=== PATIENT | male | born 1940 ===

== ENCOUNTER → 2024-11-06 14:46 | Outpatient (REF) | payer MEDICARE, SELFPAY ==
--- NOTE | 2024-11-06 14:46 | S_PTH ---
PATIENT: Aaron Roberto LOC: [facility] U#:[id number] AGE/SX: 85/M ROOM: RE11/06/[address]: Rylie Bar PA-C : 1940 BED: DIS: SPEC #: [id number] RECD: 11/07/24 06:42 STATUS: SADE REFermin #: [id number] RACHEL: 11/06/24 14:[address]: Rylie Bar DEPT: [facility] Surgical RECD BY: Kalpana Gordon ENTERED: 11/07/24 06:42 SP TYPE: Surgical OTHR DR: Flavio Armando, Tissues: A - Skin Bx Procedures: Hematoxylin and Eosin Stain Gross and Microscopic Level 4
== END ==
LOC: ANHLAB 14:46
PROVIDERS: PCP Pediatrics; Visit Provider Physician Assistant Surgical
DX: C44.41 Basal cell carcinoma of skin of scalp and neck (principal)
CPT/HCPCS: 88305

== ENCOUNTER → 2024-11-27 11:31 | Outpatient (REF) | payer MEDICARE, SELFPAY ==
--- NOTE | 2024-11-27 11:31 | S_PTH ---
PATIENT: Aaron Roberto LOC: [facility] #:[id number] AGE/SX: 85/M ROOM: RE11/27/[address]: Bradford Broussard MD : 1940 BED: DIS: SPEC #: [id number] RECD: 11/27/24 13:38 STATUS: SADE BENJAMIN #: [id number] RACHEL: 11/27/24 11:[address]: Bradford Broussard DEPT: [facility] Surgical RECD BY: Padmini Valente MLT, ([facility]) ENTERED: 11/27/24 13:40 SP TYPE: Surgical OTHR DR: Flavio ArmandoMD Tissues: A - Skin Procedures: Hematoxylin and Eosin Stain Gross and Microscopic Level 4
--- OUTSIDE RECORDS SUMMARY | 2024-11-27 13:33 | XMS_ITS | Encounter Summary ---
Author Organization [facility] Address [address] [place] [address] Care Team Providers Care Mailing Machine Helper Name Role Phone Jeet Woody MD Primary Care Provider [phone] Jermain Mendes MD Unavailable Jeet Woody MD Unavailable [phone] Jeet Woody MD Unavailable [phone] Flavio Armando MD Primary Care Provide r Encounter Details Date Type Department Care Team (Late st Contact Info) Description 01/18/2002 Abstract [facility] Conversion , Regis Johnson MD Social History Tobacco Use Types Packs/Day Years Used Date Smoking Tobacco: Never Assessed Sex and Gender Information Value Date Recorded Sex Assigned at Male 04/06/2022 9:41 AM WHEELCHAIR VAN OPERATOR FIRST RESPONDER Legal Sex Male 7:10 PM CDT Gender Identity Male 04/06/2022 9:41 AM WHEELCHAIR VAN OPERATOR FIRST RESPONDER Sexual Orientation Straight 04/06/2022 9: 41 AM WHEELCHAIR VAN OPERATOR FIRST RESPONDER documented as of this encounter Plan of Treatment Upcoming Encounters Date Type Department Care Team (Late st Contact Info) Description 12/06/2024 10:30 AM CDT Office Visit [facility] [address] [place] [address] Jermain Mendes MD [facility]. [facility] [address] [place] [address] 04/25/2025 10:40 AM WHEELCHAIR VAN OPERATOR FIRST RESPONDER Office [facility] [address] [place] [address] [place] [address] [place] [address] documented as of this encounter Visit Diagnoses Not on filedocumented in this encounter Care Teams Mailing Machine Helper Relationship Specialty Start Date End Date Jeet Woody MD PCP - General INTERNAL MEDICINE 06/18/18 10/03/19 Jeet Woody MD [address] [place] [address] PCP - Med [facility] - [facility] Attributed Provider 05/14/19 06/13/19 Jeet Woody MD PCP - [facility] - [facility] Attributed Provider 07/13/19 03/14/20 [place] [address] [place] [address] PCP - General INTERNAL MEDICINE 10/04/19 Jermain Mendes MD Three [facility]. [facility] [address] [place] [address] [employer] INTERVENTIONAL CARDIOLOGY 08/21/18 10/03/19 documented as of this encounter
--- OUTSIDE RECORDS SUMMARY | 2024-11-27 13:33 | XMS_ITS | Clinical Summary ---
Author Organization [facility] Address [address] [place] [address] Care Team Providers Care In Store Marketing Representative Name Role Phone Flavio Armando MD Primary Care Provide r Allergies No known active allergies Medications docusate sodium 100 MG capsule Take 2 capsules (200 mg total) by mouth daily. Active multi vitamin/minerals tablet Take 1 tablet by mouth daily. 30 tablet 2 Active thiamine 100 MG TabIndications:Fo lic acid deficiency Take 1 tablet (100 mg total) by mouth daily. 90 tablet 3 2 Active nitroglycerin (NITROSTAT) 0.[address] 1 tablet (0.4 mg total) under the tongue every 5 (five) minutes as needed for Chest Pain. 25 tablet 1 3 Active dutasteride (AVODART) 0.5 MG capsuleIndication s:Essential hypertension Take 1 capsule by mouth once daily 90 capsule 3 5 Active folic acid (FOLVITE) 1 MG tabletIndications :Folic acid deficiency Take 1 tablet by mouth once daily 90 tablet 3 5 Active apixaban (ELIQUIS) 5 MG tabletIndications :Atrial fibrillation, unspecified type (CMS/HCC HHS/HCC) Take 1 tablet by mouth twice daily 60 tablet 11 5 Active atorvastatin (LIPITOR) 10 MG tablet Take 1 tablet (10 mg total) by mouth every other day. at bedtime 50 tablet 1 5 Active tamsulosin (FLOMAX) 0.4 MG CapIndications:Be nign prostatic hyperplasia with nocturia TAKE 1 CAPSULE BY MOUTH NIGHTLY 90 capsule 3 5 Active metoprolol tartrate (LOPRESSOR) 25 MG tabletIndications :Essential hypertension Take 2 tablets by mouth twice daily 120 tablet 3 5 Active amoxicillin-clavu lanate (AUGMENTIN) 875-125 MG tabletIndications :Open neck wound, initial encounter Take 1 tablet (875 mg total) by mouth 2 (two) times daily for 10 days. 20 tablet 5 11/03/19 25 Active Problems Problem Noted Date Diagnosed Date Alcohol use disorder in remission 10/13/2022 Prediabetes 10/13/2022 Atrial fibrillation with RVR (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) 05/23/2022 10/13/2022 Alcohol use 07/16/2021 12/14/2021 NSTEMI (non-ST elevated myoc ardial infarction) ([facility]) 06/17/2018 04/23/2020 Encounters Date Type Department Care Team Description 10/23/2024 10:00 AM CDT Office Visit [facility] [address] [place] [address] Flavio Armando MD Follow Up (6 month. Chronic disease management. ); Wound (Right side of neck x 6 months.) 10/23/2024 Travel 10/15/2024 1:30 PM CDT - 10/15/2024 11:59 PM CDT Hospital Encounter [facility] [address] [place] [address] Flavio Armando MD Discharge Disposition: Home or Self Care (Routine Discharge) 10/15/2024 Travel from Last 3 Months Immunizations Immunization Administration Dates Next Due Influenza Adult (Generic) 04/16/2021(Deferred: P atient Refused) MODERNA COVID-19 (12+) MRNA, LNP-S, PF, 100 MCG/ 0.5 ML DOSE 01/26/2021,06/27/2020,05/30/2020 Family History Medical History Relation Comments Cancer Brother No Known Problems Father No Known Problems Mother Relation Status Comments Brother Father Mother Social History Tobacco Use Types Packs/Day Years Used Date Smoking Tobacco: Former Cigarettes 0 0 06/18/1979 - 06/18/1979 Passive Smoke Exposure: Past Smokeless Tobacco: Never Tobacco Cessation:Counseling Given: Not Answered Alcohol Use Standard Drinks/Week Comments Yes 0 (1 standard drink = 0.6 oz pur e alcohol) Social Humiliation, Afraid, Rape, and Kick questionnair e Answer Date Recorded Within the last year, have y ou been afraid of your partner or ex-partner? No 05/23/2022 Within the last year, have y ou been humiliated or emotionally abused in other ways by your partner or ex-partner? No Within the last year, have y ou been kicked, hit, slapped, or otherwise physically hurt by your partner or ex-partner? No 05/23/2022 Within the last year, have y ou been raped or forced to have any kind of sexual activity by your partner or ex-partner? No 05/23/2022 Overall Financial Resource Strain (CARDIA) Answe r Date Recorded How hard is it for you to pa y for the very basics like food, housing, medical care, and heating? Not hard at all 05/23/2022 PHQ-2 Answer Date Recorded Patient Health Questionnaire-2 Score 0 10/23/2024 Hunger Vital Sign Answer Date Recorded Within the past 12 months, y ou worried that your food would run out before you got the money to buy more. Never true 05/24/19 23 Within the past 12 months, t he food you bought just didn't last and you didn't have money to get more. Never true 05/23/2022 PRAPARE - Transportation Answer Date Re corded In the past 12 months, has l ack of transportation kept you from medical appointments or from getting medications? No 05/12 In the past 12 months, has l ack of transportation kept you from meetings, work, or from getting things needed for daily living? No 05/23/2022 Housing Stability Vital Sign Answer Hugo e Recorded In the last 12 months, was t here a time when you were not able to pay the mortgage or rent on time? No 05/23/2022 In the last 12 months, how many places have you lived? 1 05/23/2022 In the last 12 months, was t here a time when you did not have a steady place to sleep or slept in a retirement (including now)? No 05/23/2022 Sex and Gender Information Value Date Recorded Sex Assigned at Male 04/06/2022 9:41 AM FIRST AID INSTRUCTOR Legal Sex Male 7:10 PM CDT Gender Identity Male 04/06/2022 9:41 AM FIRST AID INSTRUCTOR Sexual Orientation Straight 04/06/2022 9: 41 AM FIRST AID INSTRUCTOR Last Filed Vital Signs Vital Sign Reading Time Taken Comments Blood Pressure 128/70 10/23/2024 1:30 PM CDT Pulse 90 10/23/2024 1:30 PM CDT Temperature 36.9 C (98.4 F) 10/23/2024 1:30 PM CDT Respiratory Rate 20 10/23/2024 1:30 PM CDT Oxygen Saturation 95% 10/23/2024 1:30 PM CDT Inhaled Oxygen Concentration - - Weight 88.5 kg (195 lb) 10/23/2024 1:30 PM CDT Height 175.3 cm (5' 9) 10/23/2024 1:30 PM CDT Body Mass Index 28.8 10/23/2024 1:30 PM CDT Plan of Treatment Upcoming Encounters Date Type Department Care Team (Late st Contact Info) Description 12/06/2024 10:30 AM CDT Office Visit [facility] [address] [place] [address] Jermain Mendes MD Three [facility]. [facility] [address] [place] [address] 04/25/2025 10:40 AM FIRST AID INSTRUCTOR Office Visit [facility] [address] [place] [address] [place] [address] [place] [address] Health Maintenance Due Date Last Done Comments DTaP, Tdap and Td Vaccines (1 - Tdap) 02/21/1959 Pneumococcal Vaccine: 50+ Years (1 of 2 - PCV) 02/21/1959 Zoster Vaccines (1 of 2) 02/21/1990 Annual Medicare Wellness Visit 02/21/2005 RSV Immunization or 60+ Years (1 - 1-dose 75+ series) 02/21/2015 COVID-19 Vaccine ( season) 2024 01/07/2022, 01/26/2021, 06/27/2020, Additional history exists PHQ-2 (Physician Phelps) Completed 10/23/2024 Meningococcal B Vaccine Aged Out No l onger eligible based on patient's age to complete this topic Meningococcal Vaccine Aged Out No jeffery tiago eligible based on patient's age to complete this topic RSV Immunizations Under 20 Months Aged Out No longer eligible based on patient's age to complete this topic Procedures Procedure Name Priority Date/Time Associated Diagnosis Comments PROSTATE SPECIFIC ANTIGEN,SCREENING Routine 10/15/2024 1:40 PM CDT Prostate cancer screening COMPREHENSIVE METABOLIC PANEL Routine 10/15/2024 1:40 PM CDT Prediabetes HEMOGLOBIN, GLYCOSYLATED Routine 10/15/2024 1:40 PM CDT Prediabetes from Last 3 Months Results * (ABNORMAL) HEMOGLOBIN, GLYCOSYLATED (10/15/2024 1:40 PM CDT) HGB A1C 5.8(H) <5.7 % 10/16/2024 2:53 AM CDT [facility] Comment: ADA GUIDELINES 2010 5.7 TO 6.4% INCREASED RISK OF DIABETES > OR = 6.5% CONSISTENT WITH DIABETES ESTIMATED AVG GLUCOSE 120 mg/dL 10/16/2024 2:53 AM CDT [facility] 10/15/2024 1:40 PM CDT Flavio Armando MD LABORATORY Final Result Performing Organization Address City/[facility] Co de Phone Number [facility] [address] [place] [address], [place] [phone] * PROSTATE SPECIFIC ANTIGEN,SCREENING (10/15/2024 1:40 PM CDT) PSA 0.40 <4.0 NG/ML 10/15/2024 2:46 PM CDT [facility] Comment: Test was performed using the Siemens method. Results obtained with other assay methods or kits cannot be used interchangeably with results obtained by the Siemens method. 10/15/2024 1:40 PM CDT Flavio Armando MD LABORATORY Final Result Performing Organization Address [facility]/[place] [employer] de Phone Number [facility] [address] [place] [address], [place] [phone] * (ABNORMAL) COMPREHENSIVE METABOLIC PANEL (10/15/2024 1:40 PM CDT) GLUCOSE 109(H) 70 - 99 MG/DL 10/15/2024 2:46 PM CDT [facility] BUN 9 7 - 18 MG/DL 10/15/2024 2:46 PM CDT [facility] CREATININE S/P/B 1.00 0.7 - 1.3 MG/DL 10/15/2024 2:46 PM CDT [facility] SODIUM S/P/B 137 136 - 145 MMOL/L 10/15/2024 2:46 PM CDT [facility] POTASSIUM S/P/B 4.3 3.5 - 5.1 MMOL/L 10/15/2024 2:46 PM T [facility] CHLORIDE S/P/B 104 100 - 108 MMOL/L 10/15/2024 2:46 PM T [facility] CO2 25.7 21 - 32 MMOL/L 10/15/2024 2:46 PM T [facility] CALCIUM S/P/B 9.0 8.5 - 10.1 MG/DL 10/15/2024 2:46 PM T [facility] BILIRUBIN TOTAL S/P/B 0.5 0.2 - 1.2 MG/DL 10/15/2024 2:46 PM T [facility] Comment: THIS ASSAY IS NOT RECOMMENDED FOR PATIENTS UNDERGOING TREATMENT WITH ELTROMBOPAG DUE TO THE POTENTIAL FOR FALSELY ELEVATED RESULTS. TOTAL PROTEIN S/P/B 7.3 6.4 - 8.2 G/DL 10/15/2024 2:46 PM T [facility] ALBUMIN S/P/B 3.3(L) 3.4 - 5.0 G/DL 10/15/2024 2:46 PM T [facility] AST 27 15 - 37 U/L 10/15/2024 2:46 PM [facility] ALT 31 16 - 60 U/L 10/15/2024 2:46 PM T [facility] ALKALINE PHOSPHATASE S/P/B 82 50 - 136 U/L 10/15/2024 2:46 PM [facility] ANION GAP 7.3 5 - 15 MMOL/L 10/15/2024 2:46 PM T [facility] BUN CREATININE RATIO 9.0 6 - 26 10/15/2024 2:46 PM CDT [facility] A/G RATIO 0.8(L) 1.0 - 2.0 RATIO 10/15/2024 2:46 PM CDT [facility] ([facility] GFR ESTIMATE 74(L) >90 ML/MIN/1.7 3 M2 10/15/2024 2:46 PM CDT [facility] Comment: NOTE: eGFR is not calculated for patients <18 years of age. This is an estimated GFR calculation using the new CKD EPI creatinine equation without race and so does not require a correction factor for race. This estimated GFR should not be used for calculating drug doses. 10/15/2024 1:40 PM CDT Flavio Armando MD LABORATORY Final Result Performing Organization Address City/State/[place] Co de Phone Number [facility] ([facility] [address] [place] [phone], from Last 3 [place] [address] Advance Directives Documents on File Type Date Recorded Patient Gas Station Clerk Expl anation Power of Store Sales Consultant 05/11/2022 10:07 AM 2018 POA FOR HEALTH CARE Advance Directives and Living Will 06/19/2018 6:55 AM POA for Healthcare signed 06-18-18 * Full Code (Latest Code Status on File) Date Activated Date Inactivated Comments 05/23/2022 3:59 AM 05/26/2022 8:00 PM * Full Code Date Activated Date Inactivated Comments 05/09/2022 7:51 AM 05/10/2022 9:35 PM * Full Code Date Activated Date Inactivated Comments 07/14/2018 12:54 PM 07/15/2018 1:31 PM * Full Code Date Activated Date Inactivated Comments 06/17/2018 9:18 PM 06/20/2018 6:22 PM Care Teams In Store Marketing Representative Relationship Specialty [place] [address] [place] [id number] PCP - General INTERNAL MEDICINE 10/04/19
--- OUTSIDE RECORDS SUMMARY | 2024-11-27 13:33 | XMS_ITS | Encounter Summary ---
Author Organization [facility] Address [facility] [place] [address] Care Team Providers Care Newspaper Or Periodical Editor Name Role Phone Jeet Woody MD Primary Care Provider [phone] Jermain Mendes MD Unavailable Jeet Woody MD Unavailable [phone] Jeet Woody MD Unavailable [phone] Flavio Armando MD Primary Care Provide r Encounter Details Date Type Department Care Team (Late st Contact Info) Description 06/22/2018 Hospital Follow-up Call [facility] Telemetry [facility] [address] [facility] [address] Jeri Palencia Social History Tobacco Use Types Packs/Day Years Used Date Smoking Tobacco: Former Cigarettes Q uit: 06/18/1979 Smokeless Tobacco: Never Alcohol Use Standard Drinks/Week Comments Yes 58.3 (1 standard drink = 0.6 oz pure alcohol) Sex and Gender Information Value Date Recorded Sex Assigned at Male 04/06/2022 9:41 AM PUBLIC AID ELIGIBILITY ASSISTANT Legal Sex Male 7:10 PM CDT Gender Identity Male 04/06/2022 9:41 AM PUBLIC AID ELIGIBILITY ASSISTANT Sexual Orientation Straight 04/06/2022 9: 41 AM PUBLIC AID ELIGIBILITY ASSISTANT documented as of this encounter Functional Status * Do you have serious difficulty walking or climbing stairs? Answer Date of Assessment Author Status No 06/17/2018 9:48 PM CDT Erps, Jeri L, RN Active documented as of this encounter Plan of Treatment Upcoming Encounters Date Type Department Care Team (Late st Contact Info) Description 12/06/2024 10:30 AM CDT Office Visit [facility] [address] [facility] [address] Jermain Mendes MD Three [facility]. [facility] [address] [place] [address] 04/25/2025 10:40 AM PUBLIC AID ELIGIBILITY ASSISTANT Office [facility] [address] [place] [phone] [place] [address] [place], [place] [id number] documented as of this encounter Visit Diagnoses Not on filedocumented in this encounter Care Teams Newspaper Or Periodical Editor Relationship Specialty Start Date End Date Jeet Woody MD PCP - General INTERNAL MEDICINE 06/18/18 10/03/19 Jeet Woody MD [address] [place] [address] PCP - Med [facility] - [facility] Attributed Provider 05/14/19 06/13/19 Jeet Woody MD PCP - Med Group - [facility] Attributed Provider 07/13/19 03/14/20 [place] [address] [place] [address] PCP - General INTERNAL MEDICINE 10/04/19 Jermain Mendes MD Three [facility]. [facility] [address] [place], [place] [address] Alfonso Cigar Roller INTERVENTIONAL CARDIOLOGY 08/21/18 10/03/19 documented as of this encounter
== END ==
LOC: ANHLAB 11:31
PROVIDERS: PCP Pediatrics; Visit Provider Plastic Surgery
DX: C44.41 Basal cell carcinoma of skin of scalp and neck (principal)
CPT/HCPCS: 88305